=== PATIENT | male | born 1975 | race Caucasian/White ===

== ENCOUNTER → 2020-06-12 08:33 | Outpatient (CLI) | payer MEDICARE, OTHER, SELFPAY ==
--- NOTE | 2020-06-12 08:38 | FL_ITS ---
PROCEDURE: FL BARIUM SWALLOW Referring Doctor: Maycol Hall Patient Age:44Y CLINICAL INDICATION: DYAPHAGIA lower esophagus food sticks at lower esophagus with both solids and liquids COMPARISON: No exams were available for comparison TECHNIQUE: In the upright position the patient was observed to swallow barium in both the AP and lateral view. The cervical esophagus was examined under fluoroscopy with images obtained. The patient was then placed prone in the right anterior oblique position and was observed to swallow barium with Valsalva technique . FLUOROSCOPY TIME: 1 minutes 19 seconds FINDINGS: There was no evidence of aspiration. T. Slightly generous cricopharyngeus muscle which did relax appropriately. A most significant is in on the prone IQBAL position imaging with drinking and Valsalva maneuver, the patient did demonstrate a sliding hiatal hernia with Schatzki's ring. The esophageal lumen narrows down near 1 cm in this region. No ulceration or erosions. The remainder esophagus appears satisfactory But no GE reflux observed during this setting IMPRESSION: 1... Period small sliding hiatal hernia with generous Schatzki's ring. This was demonstrated with patient in prone position and Valsalva maneuver.. The esophageal lumen appears narrowed to just over 1 cm in at the level of the Schatzki's ring Dictated by: Chucho Barba MD 06/12/2020 14:05 Chucho Barba MD in [place] 06/12/2020 14:05
== END ==
PROVIDERS: PCP Internal Medicine Adolescent Medicine; Visit Provider Internal Medicine Adolescent Medicine
DX: R13.10 Dysphagia, unspecified (principal)
CPT/HCPCS: 74220